=== PATIENT | female | born 1995 | race Two or more races ===

== ENCOUNTER 2024-02-21 16:58 | Emergency (ER) | payer OTHER ==
[~2024-02-21] VITALS: Ht 170.2 cm; Wt 63.5 kg
[2024-02-21] MEDS ORDERED: DIPHENHYDRAMINE HCL 50 MG/ML VIAL 1ML IM ONE (19:45)
[2024-02-21 21:02] LABS: HEMOGLOBIN 13.9 g/dL (12.0-15.00); MEAN CELL VOLUME 88.9 fL (80.00-100.00); MEAN CORPUSCULAR HEMOGLOBIN 30.2 pg (27.00-32.0); PLATELET COUNT 314 K/uL (150-450); RED BLOOD COUNT 4.61 M/uL (4.00-6.00); RED CELL DISTRIBUTION WIDTH 13.7 % (11.5-14.5)
[2024-02-21 21:23] LABS: INR 1.03; PARTIAL THROMBOPLASTIN TIME 24.5 SECONDS (22.0-34.0); PROTHROMBIN TIME 11.2 SECONDS (9.0-11.5)
[2024-02-21 21:29] LABS: CALCIUM 9.3 mg/dL (8.5-10.1); CREATININE SERUM 0.66 mg/dL (0.55-1.02); GFR 107.43
[2024-02-21] MEDS ORDERED: AMMONIUM LACTA385 GM TOP (22:38)
[2024-02-21] MEDS ORDERED: ATARAX25 MG PO (22:38)
[2024-02-21] MEDS ORDERED: CLOBETASOL PROP15 GM TOP (22:38)
== END 2024-02-21 22:54 ==
LOC: ER 17:01
PROVIDERS: General Practice
DX: L85.8 Other specified epidermal thickening (principal); L29.9 Pruritus, unspecified; R07.89 Other chest pain; R53.83 Other fatigue; R21 Rash and other nonspecific skin eruption; Z20.822 Contact with and (suspected) exposure to COVID-19